=== PATIENT | male | born 1975 | race Caucasian/White ===

== ENCOUNTER 2018-07-19 06:40 | Emergency (ER) | payer OTHER ==
[2018-07-19 07:10] VITALS: BP 113/76
--- NOTE | 2018-07-19 07:41 | Emergency Department Report ---
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 He reports pain with movement but no shortness of breath. Denies any cough nausea vomiting or chest pain. It is located in the left posterior thorax, distally. Pain feels achy and he said he has some pain when he takes a deep breath . He said [id number] medications is not helping. This is not the first time that he has a flap pain. MD Complaint: back pain -: year(s) Similar Symptoms Previously: Yes Place: street Radiation: none Severity: severe Severity scale (0 -10): 8 Quality: aching Consistency: intermittent Improves With: none Worsens With: walking Context: unknown, other (history of lung surgery in the past) Associated Symptoms: denies: confusion, weakness, numbness, difficulty walking, cough, diaphoresis, incontinence, fever/chills, constipation, headaches, abdominal pain, loss of appetite, nausea/vomiting, rash, seizure, shortness of breath, syncope - Related Data Previous Rx's Medication Instructions Recorded Last Taken Type Cyclobenzaprine [Flexeril] 10 mg PO TID PRN #12 tablet 07/19/18 Unknown Rx Ibuprofen [Motrin] 600 mg PO Q8H PRN #12 tablet 07/19/18 Unknown Rx Allergies Allergy/AdvReac Type Severity Reaction Status Date / Time No Known Allergies Allergy Unverified 07/19/18 07:08 ED Review of Systems ROS: Stated complaint: BACK PAIN Other details as noted in HPI Constitutional: denies: chills, fever Eyes: denies: eye pain, eye discharge, vision change ENT: denies: ear pain, throat pain, congestion Respiratory: denies: cough, shortness of breath, SOB with exertion, SOB at rest , stridor, wheezing Cardiovascular: denies: chest pain, palpitations, edema, syncope Gastrointestinal: denies: abdominal pain, nausea, diarrhea Musculoskeletal: back pain. denies: joint swelling, arthralgia, myalgia Skin: denies: rash, lesions, change in hair/nails Neurological: denies: headache, weakness, paresthesias, abnormal gait, vertigo ED Past Medical Hx - Past Medical History Lung problems status post lung surgery in 2002 Surgical history: other (partial lobectomy left lower lung 2002) Psychiatric history: no pertinent history Family history: no significant family history - Social History Smoking Status: Never Smoker Alcohol use: none Drug use: none ED Back Pain Physical Exam - Exam General: Vital signs noted. No distress. Alert and acting appropriately. This is a 43-year-old male here report that he has left lower back pain and this is something that he is constantly. Well-nourished well-developed in no acute distress Back/Abdomen: Yes Perithoracic Tenderness (left posterior thorax were patients that he is having pain is nontender to palpate but with spasm), No Abdominal Tenderness, No Perilumbar Tenderness, No Sacroiliac Tenderness, No Flank Tenderness, No Straight Leg Raise Pain Neuro: Yes Normal DTR's, Yes Normal Gait, No Normal Sensation, No Motor Weakness ED Course Vital Signs 07/19/18 07:08 Temperature 97.9 F Pulse Rate 69 Respiratory 18 Rate Blood Pressure 113/76 O2 Sat by Pulse 98 Oximetry - Reevaluation(s) Reevaluation #1: 07/19/18 08:54 Patient received Motrin 800 mg for pain. Ed Back Pain Tests - Tests Tests: Normal X Rays (chest x-ray shows no acute finding and) ED Medical Decision Making - Radiology Data Radiology results: report reviewed Chest x-ray 2 views dictated radiologist report reviewed by myself. No acute findings. Patient has history of left lung surgery in the past. See below for details Patient: Dina HARGROVE MR#: [id number] : 1975 Acct:[id number] Age/Sex: 43 / M ADM Date: 07/19/18 Loc: ED Attending Dr: Ordering Physician: FAWAD CARABALLO Date of Service: 07/19/18 Procedure(s): XR chest routine 2V Accession Number(s): [id number] cc: FAWAD CARABALLO Fluoro Time In Minutes: ROUTINE CHEST, TWO VIEWS: HISTORY: Chest pain with inspiration. No comparison. There appears to be chronic bony deformity of the left hemithorax, correlate with history. This could be secondary to trauma. Low lung volume is suspected on the left side. The left hemidiaphragm is mildly elevated with moderate left pleural thickening lateral to the left upper lobe. The lungs are well aerated otherwise. Heart and mediastinal structures are unremarkable. IMPRESSION: Bony deformity of the left hemithorax which is probably chronic and posttraumatic. There are chronic pleural-parenchymal changes in the left lung as described. I suspect these findings are all chronic. No acute cardiopulmonary process is appreciated. Please correlate with the patient's clinical history and consider further evaluation with CT chest with contrast. Transcribed By: TTR Dictated By: ZEE ABDI JR, MD Electronically Authenticated By: ZEE ABDI JR, MD Signed Date/Time: 07/19/18804 DD/ 2 TD/TT: 07/19/18804 - Medical Decision Making This is a 43-year-old male here for evaluation of pain to his left superior thorax. I saw and examined patient and physical exam is normal. Chest x-ray showed no acute findings. All findings are chronic from previous lung surgery. I discussed this patient and he voiced understanding and I told him he needs to follow-up with a retread mold operator if he still continued to have pain. He was given Motrin indigent milligram by mouth for pain. Vital signs are stable and he feels better. I gave him the results of his chest x-ray. He is to follow- up with retread mold operator in 2-3 days and also his primary care physician. Patient discharge and prescription for Flexeril and Motrin Critical care attestation.: If time is entered above; I have spent that time in minutes in the direct care of this critically ill patient, excluding procedure time. ED Disposition Clinical Impression: Spasm of thoracic back muscle Back pain Qualifiers: Back pain location: thoracic back pain Chronicity: unspecified Back pain laterality: left Qualified Code(s): M54.6 - Pain in thoracic spine Disposition: TO HOME OR SELFCARE Is pt being admited?: No Does the pt Need Aspirin: No Condition: Stable Instructions: Muscle Spasm (ED), Back Pain (ED) Additional Instructions: Please follow-up with your primary care physician in 2-3 days and if he did not have a primary care physician follow-up at [facility] for chronic back pain Referrals: PRIMARY CARE, [Primary Care Provider] - 2-3 Days Forms: Work/School Release Form(ED)
--- NOTE | 2018-07-19 08:06 | XRay Report ---
ROUTINE CHEST, TWO VIEWS: HISTORY: Chest pain with inspiration. No comparison. There appears to be chronic bony deformity of the left hemithorax, correlate with history. This could be secondary to trauma. Low lung volume is suspected on the left side. The left hemidiaphragm is mildly elevated with moderate left pleural thickening lateral to the left upper lobe. The lungs are well aerated otherwise. Heart and mediastinal structures are unremarkable. IMPRESSION: Bony deformity of the left hemithorax which is probably chronic and posttraumatic. There are chronic pleural-parenchymal changes in the left lung as described. I suspect these findings are all chronic. No acute cardiopulmonary process is appreciated. Please correlate with the patient's clinical history and consider further evaluation with CT chest with contrast.
[2018-07-19] MEDS ORDERED: MOTRIN PO ONE (08:53)
== END 2018-07-19 09:06 | disposition home or self-care (01) ==
LOC: ED 06:40
DX: M54.6 Pain in thoracic spine (principal); R25.2 Cramp and spasm; M62.830 Muscle spasm of back
CPT/HCPCS: 71046; 99283